=== PATIENT | female | born 1995 | race Caucasian/White ===

== ENCOUNTER 2018-12-14 22:50 | Emergency (ER) | payer OTHER ==
[2018-12-15 01:02] LABS: URINE PH (Dip) POC 7.5 (5.0-8.5)
[2018-12-15 01:02] LABS: URINE BLOOD (Dip) POC 3+ (NEGATIVE); URINE GLUCOSE (Dip) POC Negative (NEGATIVE); URINE KETONES (Dip) POC Negative (NEGATIVE); URINE LEUKOCYTE EST (Dip) POC 1+ (NEGATIVE); URINE NITRITE (Dip) POC Negative (NEGATIVE); URINE TOTAL PROTEIN POC 2+ (NEGATIVE)
[2018-12-15 01:55] LABS: TROPONIN-I < 0.012 ng/ml (0.000-0.120)
== END 2018-12-15 02:35 | disposition home or self-care (01) ==
LOC: FTE 22:50
DX: R07.89 Other chest pain (principal); R94.6 Abnormal results of thyroid function studies
CPT/HCPCS: 36415; 71045; 81003; 81025; 84443; 84484; 93005; 99285-25